=== PATIENT | male | born 1960 | race African-American/Black ===

== ENCOUNTER 2017-09-08 20:48 | Emergency (ER) | payer OTHER ==
--- NOTE | 2017-09-08 20:58 | PDOC ---
History of Present Illness - General Chief Complaint: Chest Pain Stated Complaint: COUGH & CHEST PAIN Time Seen by Provider: 09/08/17 20:58 - History of Present Illness Initial Comments: 09/13/17 07:23 Chief complaint: Cough History of present illness: Nonproductive cough, congestion, body aches, fatigue , malaise for several days. No fever, chest pain, shortness of breath Review of systems: As above Past medical history: Chronic renal failure on dialysis, as a result diabetes and HBP. Medications as noted Social/family history reviewed and noncontributory Physical exam: Alert oriented well-developed well-nourished no acute distress, respiratory or otherwise, cheerful and cooperative Afebrile, vital signs stable HEENT: Nasal congestion, ears and throat clear. Neck supple without bruit mass or nodes Lungs clear with full breath sounds throughout bilaterally. No wheezes rales or rhonchi CV S1 and S2 normal without murmur rub or gallop pulses full and symmetric no JVD or edema there is a good thrill in the shunt in his left forearm. Abdomen benign Neurological intact Skin clear, no rash, adequate turgor and wet mucous membranes Extremities no CCE Impression: Probable flu, rule out pneumonia Plan: X-ray negative. Tamiflu and antitussives. Rest and follow-up if symptoms worsen. Fully ambulatory and in no distress respiratory or otherwise at discharge with family to follow-up as recommended. Past History - Past Medical History Allergies/Adverse Reactions: Allergies Allergy/AdvReac Type Severity Reaction Status Date / Time No Known Drug Allergies Allergy Verified 09/08/17 21:14 Home Medications: Ambulatory Orders Cinacalcet HCl [Sensipar] 30 mg PO DAILY 03/01/16 Hydralazine HCl 100 mg PO BID 03/01/16 Losartan Potassium 100 mg PO DAILY #10 tablet 03/01/16 Nifedipine [Adalat cc] 60 mg PO BID #20 tablet.er 03/01/16 Sevelamer Carbonate [Renvela -] 800 mg PO TID 03/01/16 Guaifenesin AC [Robitussin-AC] 1 - 2 tsp PO Q4HWA PRN #120 ml MDD 8 09/08/17 Oseltamivir Phosphate [Tamiflu] 75 mg PO BID #10 capsule 09/08/17 Diabetes: Yes Dialysis: Yes (m,w,f) HTN: Yes Hypercholesterolemia: Yes Thyroid Disease: No - Surgical History Appendectomy: Yes (20 YRS. AGO) - Immunization History Td Vaccination: No Immunization Up to Date: Yes - Suicide/Smoking/Psychosocial Hx Smoking Status: Yes Smoking History: Former smoker Have you smoked in the past 12 months: No Number of Cigarettes Smoked Daily: 2 If you are a former smoker, when did you quit?: 2 months ago 'Breaking Loose' booklet given: 03/01/16 Hx Alcohol Use: No Drug/Substance Use Hx: No Substance Use Type: None Hx Substance Use Treatment: No *DC/Admit/Observation/Transfer Diagnosis at time of Disposition: Viral bronchitis - Discharge Dispostion Disposition: HOME Condition at time of disposition: Stable Admit: No - Prescriptions Prescriptions: Guaifenesin AC [Robitussin-AC] 1 - 2 tsp PO Q4HWA PRN #120 ml MDD 8 PRN Reason: Cough Oseltamivir Phosphate [Tamiflu] 75 mg PO BID #10 capsule - Referrals - Patient Instructions Printed Discharge Instructions: DI for Acute Bronchitis Additional Instructions: Rest, fluids, medication as directed. If there is chest pain, shortness of breath, or fever, return to the emergency room. Otherwise follow-up with your primary physician in 2-3 days. - Post Discharge Activity
[2017-09-08 21:26] VITALS: BP 166/75; PULSE 94; TEMP 100.5; BMI 33.5
[2017-09-08] MEDS ORDERED: OSELTAMIVIR PHOSPHATE 75 MG CAPSULE PO ONE (22:05)
[2017-09-08] MEDS ORDERED: OSELTAMIVIR PHOSPHATE 75 MG CAPSULE ONE (22:06)
== END 2017-09-08 22:13 | disposition home or self-care (01) ==
LOC: FER 20:48
DX: J20.8 Acute bronchitis due to other specified organisms (principal); B97.89 Other viral agents as the cause of diseases classified elsewhere; Z87.891 Personal history of nicotine dependence; I10 Essential (primary) hypertension; E78.00 Pure hypercholesterolemia, unspecified; E11.9 Type 2 diabetes mellitus without complications; Z99.2 Dependence on renal dialysis
CPT/HCPCS: 71046-TC; 99282-25

== ENCOUNTER 2019-02-08 08:06 | Inpatient (IN) | payer OTHER ==
--- NOTE | 2019-02-08 08:16 | PDOC ---
History of Present Illness - General Chief Complaint: Shortness of Breath Stated Complaint: COUGHING/ WEAKNESS Time Seen by Provider: 02/08/19 08:16 History Source: Patient - History of Present Illness Initial Comments: 02/08/19 08:58 The patient is a 59 year old male with a PMH of ESRD (on HD M/W/F) and HTN last dialysis Tuesday 02/06 presents to the ED c/o 1 day h/o shortness of breath. Patient notes a h/o generalized weakness and shortness of breath which he attributes to his dialysis, but starting last night his shortness of breath was particularly severe and worsened overnight prompting his visit to the ED this morning. No associated chest pain, leg swelling, calf pain. Endorses cough and runny nose. States that his last dialysis was Saturday and he was 1 kg over his normal dry weight, he is normally 108 kg, however he was 109 kg on Saturday, noting that he had consumed a lot of water prior to dialysis on Saturday. H/o echocardiogram but cannot recall when states he believes everything was normal. 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 Pena As per EMR, patient had a CLAY in 2014 with normal EF. Past History - Past Medical History Allergies/Adverse Reactions: Allergies Allergy/AdvReac Type Severity Reaction Status Date / Time No Known Drug Allergies Allergy Verified 02/08/19 08:11 Home Medications: Ambulatory Orders Hydralazine HCl 100 mg PO TID 03/01/16 Nifedipine [Adalat cc] 60 mg PO BID #20 tablet.er 03/01/16 Sevelamer Carbonate [Renvela -] 800 mg PO TID 03/01/16 COPD: No Diabetes: Yes Dialysis: Yes (m,w,f) HTN: Yes Hypercholesterolemia: Yes Thyroid Disease: No - Surgical History Appendectomy: Yes (20 YRS. AGO) - Immunization History Td Vaccination: No Immunization Up to Date: Yes - Suicide/Smoking/Psychosocial Hx Smoking Status: Yes Smoking History: Never smoked Have you smoked in the past 12 months: No Number of Cigarettes Smoked Daily: 2 If you are a former smoker, when did you quit?: 2 months ago 'Breaking Loose' booklet given: 03/01/16 Hx Alcohol Use: No Drug/Substance Use Hx: No Substance Use Type: None Hx Substance Use Treatment: No Review of Systems - Review of Systems Constitutional: No: Chills, Fever HEENTM: Yes: Tearing, Nose Congestion Respiratory: Yes: Shortness of Breath. No: Cough, Wheezing Cardiac (ROS): No: Chest Pain, Lightheadedness, Palpitations, Syncope ABD/GI: No: Constipated, Diarrhea, Nausea, Vomiting *Physical Exam - Vital Signs Last Vital Signs Temp Pulse Resp BP Pulse Ox 97.4 F L 77 18 197/86 H 100 02/08/19 08:08 02/08/19 08:08 02/08/19 08:08 02/08/19 08:08 02/08/19 08:08 - Physical Exam Comments: 02/08/19 09:11 General: Awake, alert, NAD, breathing comfortably on RA CV: S1, S2, (-) S3, mild LE edema B/L (chronic) Respiratory: decreased breath sound B/L, no wheeze/crackle Abdomen: Soft, no TTP (+) bowel sounds Extremity: RUE fistula (+) bruit Heart Score/ECG Review - ECG Impressions Comment:: 02/08/19 09:18 NSR HR 74, QT prolongation, no deviations, no RAUL/STD/TWI ED Treatment Course - LABORATORY CBC & Chemistry Diagram: 02/08/19 09:16 02/08/19 09:16 Medical Decision Making - Medical Decision Making 02/08/19 09:13 59 year old male with worsening shortness of breath. Hypertensive (197/68) @ triage Frontal diagnosis: fluid overload 2/2 to under dialysis, r/o ACS, new onset CHF , PNA, Viral URI Plan: EKG, CXR, Troponin, BNP, Cardiac monitoring, Reassess 02/08/19 09:19 EKG non-ischemic as documented in EKG section of EMR 02/08/19 10:11 Call received from lab - critical lab value, hyperkalemic, 6.2, likely 2/2 to ESRD/dialysis - will dialyze > Hyperkalemic cocktail 02/08/19 10:31 Troponin elevated @ 0.4 02/08/19 10:39 Patient reassessed @ bedside, Repeat BP174/95 At this time, patient requires admission for HD, patient counseled on plan of care amenable to admission 02/08/19 11:04 Case d/w Dr. Ann (Hospitalist) will admit for dialysis, cardiac evaluation 02/08/19 11:19 Case d/w Dr. Fuchs, covering for patient's social services aide, agrees w/HD, will evaluate patient at bedside Clinical Impression: Hyperkalemia 2/2 to decreased renal function, subjective dyspnea 2/2 to sub optimal HD *DC/Admit/Observation/Transfer Diagnosis at time of Disposition: Hyperkalemia - Discharge Dispostion Condition at time of disposition: Fair Decision to Admit order: Yes - Referrals - Patient Instructions - Post Discharge Activity
[2019-02-08 08:21] VITALS: BMI 32.6
[2019-02-08 09:40] LABS: BASO % 0.9 % (0-2.0); EOS % 17.7 % (0-4.5); HEMATOCRIT 30.9 % (35.4-49); HEMOGLOBIN 10.2 GM/dL (11.7-16.9); LYMPH % 14.2 % (8-40); MCH 32.2 pg (25.7-33.7); MCHC 33.1 g/dl (32.0-35.9); MEAN CELL VOLUME 97.3 fl (80-96); MEAN PLT VOLUME 9.1 fl (7.5-11.1); MONO % 7.9 % (3.8-10.2); NEUT % 59.3 % (42.8-82.8); RBC 3.18 M/mm3 (4.00-5.60); RDW 14.1 % (11.9-15.9); WHITE BLOOD COUNT 6.3 K/mm3 (4.0-10.0)
[2019-02-08 09:54] LABS: PLATELET COUNT 195 K/MM3 (134-434)
[2019-02-08 10:08] LABS: ALBUMIN 3.8 g/dl (3.4-5.0); BILIRUBIN,TOTAL 0.4 mg/dL (0.2-1); BLOOD UREA NITROGEN 58.7 mg/dL (7-18); CALCIUM 8.1 mg/dL (8.5-10.1); N-TERMINAL BNP 17630.7 pg/ml (5-125)
[2019-02-08 10:09] VITALS: PULSE 74; TEMP 98.1
[2019-02-08 10:10] LABS: CREATININE 13.5 mg/dL (0.55-1.3); POTASSIUM 6.2 mmol/L (3.5-5.1)
[2019-02-08] MEDS ORDERED: hydrALAZINE HCL 10 MG TABLET PO ONE (10:29)
[2019-02-08] MEDS ORDERED: hydrALAZINE HCL 25 MG TABLET (FP) ONE (10:44)
[2019-02-08] MEDS ORDERED: NIFEdipine E.R 60 MG TABLET (UD) PO SCH ×2 (10:45→22:00)
[2019-02-08] MEDS ORDERED: NIFEdipine E.R. 30 MG TABLET (FP) ONE (10:45)
[2019-02-08 11:48] VITALS: BP 175/92
--- NOTE | 2019-02-08 11:56 | HP ---
CHIEF COMPLAINT: sob HISTORY OF PRESENT ILLNESS: Patient is a 59 yo M with a PMHx of ESRD (M/w/F), HTN, DM, presenting with worsening SOB since his last dialysis session on Saturday. He says he usually gets SOB on Sundays because of the 3 day gap between dialysis sessions. He also says they took out a kilo less than what they usually take out. Patient currently asymptomatic, says his SOB his better. Dr. Josefina Tijerina is his hotel service supervisor. He denies chest pain, dizziness, cough, edema, calf pain, nausea , vomiting, fevers, chills, diarrhea. ER course was notable for: (1) Hyperkalemia 6.2 (2) CXR unremarkable (3) EKG with no peaked T waves or ST changes Recent Travel: denies PAST MEDICAL HISTORY: per HPI PAST SURGICAL HISTORY: appendectomy, RUE fistula Social History: Smoking: denies. former smoker Alcohol: occasional Drugs: denies Allergies No Known Drug Allergies Allergy (Verified 02/08/19 08:11) HOME MEDICATIONS: Home Medications Medication Instructions Recorded Hydralazine HCl 100 mg PO TID 03/01/16 Nifedipine [Adalat cc] 60 mg PO BID #20 tablet.er 03/01/16 Sevelamer Carbonate [Renvela -] 800 mg PO TID 03/01/16 REVIEW OF SYSTEMS CONSTITUTIONAL: Absent: fever, chills, diaphoresis, generalized weakness, malaise, loss of appetite, weight change HEENT: Absent: rhinorrhea, nasal congestion, throat pain, throat swelling, difficulty swallowing, mouth swelling, ear pain, eye pain, visual changes CARDIOVASCULAR: Absent: chest pain, syncope, palpitations, irregular heart rate, lightheadedness , peripheral edema RESPIRATORY: Absent: cough, shortness of breath, dyspnea with exertion, orthopnea, wheezing, stridor, hemoptysis GASTROINTESTINAL: Absent: abdominal pain, abdominal distension, nausea, vomiting, diarrhea, constipation, melena, hematochezia GENITOURINARY: Absent: dysuria, frequency, urgency, hesitancy, hematuria, flank pain, genital pain MUSCULOSKELETAL: Absent: myalgia, arthralgia, joint swelling, back pain, neck pain SKIN: Absent: rash, itching, pallor HEMATOLOGIC/IMMUNOLOGIC: Absent: easy bleeding, easy bruising, lymphadenopathy, frequent infections ENDOCRINE: Absent: unexplained weight gain, unexplained weight loss, heat intolerance, cold intolerance NEUROLOGIC: Absent: headache, focal weakness or paresthesias, dizziness, unsteady gait, seizure, mental status changes, bladder or bowel incontinence PSYCHIATRIC: Absent: anxiety, depression, suicidal or homicidal ideation, hallucinations. PHYSICAL EXAMINATION Vital Signs - 24 hr 02/08/19 02/08/19 02/08/19 08:08 08:11 08:33 Temperature 97.4 F L 98.1 F Pulse Rate 77 Pulse Rate [ 74 Right Radial] Respiratory 18 18 Rate Blood Pressure 197/86 H Blood Pressure 195/93 H [Right Arm] O2 Sat by Pulse 100 97 97 Oximetry (%) GENERAL: Awake, alert, and fully oriented, in no acute distress. HEAD: Normal with no signs of trauma. EYES: Pupils equal, round and reactive to light, extraocular movements intact, sclera anicteric, conjunctiva clear. No lid lag. EARS, NOSE, THROAT:oropharynx clear without exudates. Moist mucous membranes. NECK: supple without lymphadenopathy, JVD, or masses. LUNGS: Breath sounds equal, clear to auscultation bilaterally. No wheezes, and no crackles. No accessory muscle use. HEART: Regular rate and rhythm, normal S1 and S2 without murmur, rub or gallop. ABDOMEN: Soft, nontender, not distended, normoactive bowel sounds, no guarding, no rebound, no masses. LOWER EXTREMITIES: 2+ pulses, warm, well-perfused. No peripheral edema. NEUROLOGICAL: Cranial nerves II-XII intact. Normal speech. Laboratory Results - last 24 hr 02/08/19 02/08/19 09:16 09:16 WBC 6.3 RBC 3.18 L Hgb 10.2 L Hct 30.9 L MCV 97.3 H MCH 32.2 MCHC 33.1 RDW 14.1 Plt Count 195 D MPV 9.1 Absolute Neuts (auto) 3.7 Neutrophils % 59.3 Lymphocytes % 14.2 Monocytes % 7.9 Eosinophils % 17.7 H D Basophils % 0.9 D Nucleated RBC % 0 Sodium 139 Potassium 6.2 H* Chloride 106 Carbon Dioxide 23 Anion Gap 10 BUN 58.7 H Creatinine 13.5 H* Est GFR (CKD-EPI)AfAm 4.03 Est GFR (CKD-EPI)NonAf 3.48 Random Glucose 90 Calcium 8.1 L Total Bilirubin 0.4 AST 10 L ALT 17 Alkaline Phosphatase 76 Troponin I 0.04 B-Natriuretic Peptide 44156.7 H Total Protein 7.0 Albumin 3.8 ASSESSMENT/PLAN: 59 yo M with a PMHx of ESRD (M/w/F), HTN, DM, presenting with worsening SOB since his last dialysis session on Saturday. #Dyspnea -currently saturating 99% on RA. comfortable. -does not appear volume overloaded -CXR unremarkable. No congestive changes. -Nephrology consulted: no plans for dialysis today -Plan for dialysis tomorrow 6am outpatient. d/w Nephrology (Dr. Fuchs): in agreement with AM dialysis outpatient tomorrow #Hyperkalemia -patient w/ ESRD -no changes on EKG -Plan for dialysis tomorrow morning outpatient #HTN -patient did not take meds this morning because he came early to the ED -cont. home meds -BP slowly improving #DM -BGM -SSI #Anemia -likely chronic from ESRD #FEN -no iv fluids -hyperkalemic from ESRD -diabetic diet #Dvt ppx -eab
[2019-02-08] MEDS ORDERED: SEVELAMER CARBONATE 800 MG TAB (FP) PO SCH (12:00)
--- NOTE | 2019-02-08 12:01 | DS ---
Physical Exam: SUBJECTIVE: Patient seen and examined. Says he feels much better. Denies SOB, chest pain. OBJECTIVE: Vital Signs Period Temp Pulse Resp BP Sys/Price Pulse Ox Last 24 Hr 97.4 F-98.1 F 74-77 18-20 175-197/86-93 97-100 PHYSICAL EXAM GENERAL: The patient is awake, alert, and fully oriented, in no acute distress. HEAD: Normal with no signs of trauma. EYES: PERRL, extraocular movements intact, sclera anicteric, conjunctiva clear. ENT: oropharynx clear without exudates, moist mucous membranes. NECK: supple. LUNGS: Breath sounds equal, clear to auscultation bilaterally, no wheezes, no crackles HEART: Regular rate and rhythm, S1, S2 without murmur, rub or gallop. ABDOMEN: Soft, nontender, nondistended, normoactive bowel sounds EXTREMITIES: 2+ pulses, warm, well-perfused, no edema. NEUROLOGICAL: Cranial nerves II through XII grossly intact. PSYCH: Normal mood, normal affect. LABS Laboratory Results - last 24 hr 02/08/19 02/08/19 09:16 09:16 WBC 6.3 RBC 3.18 L Hgb 10.2 L Hct 30.9 L MCV 97.3 H MCH 32.2 MCHC 33.1 RDW 14.1 Plt Count 195 D MPV 9.1 Absolute Neuts (auto) 3.7 Neutrophils % 59.3 Lymphocytes % 14.2 Monocytes % 7.9 Eosinophils % 17.7 H D Basophils % 0.9 D Nucleated RBC % 0 Sodium 139 Potassium 6.2 H* Chloride 106 Carbon Dioxide 23 Anion Gap 10 BUN 58.7 H Creatinine 13.5 H* Est GFR (CKD-EPI)AfAm 4.03 Est GFR (CKD-EPI)NonAf 3.48 Random Glucose 90 Calcium 8.1 L Total Bilirubin 0.4 AST 10 L ALT 17 Alkaline Phosphatase 76 Troponin I 0.04 B-Natriuretic Peptide 98854.7 H Total Protein 7.0 Albumin 3.8 HOSPITAL COURSE: Date of Admission:02/08/19 Patient is a 59 yo M with a PMHx of HTN, DM, ESRD (MWF), presented because of worsening since his last dialysis treatment on Saturday. He said he gets SOB every saturday because he goes 3 days without dialysis. Patient was also found hypertensive, but did not take his medications in the AM because he came to the ED very early. Patient improved and is currently asymptomatic. Nephrology was consulted and emergent dialysis was not recommended at this time. Patient recommended to continue normal dialysis sessions. He currently denies SOB, chest pain, edema, dizziness, cough. He is scheduled for dialysis tomorrow morning and will follow with his PCP next week. Date of Discharge: 02/08/19 Minutes to complete discharge: 35 Discharge Summary Reason For Visit: HYPERKALEMIA Condition: Fair - Instructions Diet, Activity, Other Instructions: You were here because you were Short of breath. Your symptoms improved in the emergency room. You are scheduled for dialysis on 02/09 at 6am. Your Saturday dialysis sessions will likely be adjusted to avoid future episodes of shortness of breath. Your hospice care transitions coordinator is notified and aware. We did not make any changes to your medications. Follow a low salt diet as this will hopefully prevent you from holding onto more fluid. You can obtain a pulse oximeter to monitor your oxygen level if you are feeling short of breath. You goal is for your oxygen level >90% If you experience worsening shortness of breath, chest pain, cough, leg swelling , please call your doctor or go to the nearest emergency room. Referrals: Josefina Rushing MD [Staff Physician] - 1 Week Disposition: HOME - Home Medications Comprehensive Discharge Medication List: Ambulatory Orders Hydralazine HCl 100 mg PO TID 03/01/16 Nifedipine [Adalat cc] 60 mg PO BID #20 tablet.er 03/01/16 Sevelamer Carbonate [Renvela -] 800 mg PO TID 03/01/16
--- NOTE | 2019-02-08 12:30 | PN ---
Teaching Attending Note Name of Resident: Gisela Ann ATTENDING PHYSICIAN STATEMENT I saw and evaluated the patient. I reviewed the resident's note and discussed the case with the resident. I agree with the resident's findings and plan as documented. SUBJECTIVE:59yo M wtih PMH ESRD On HD (MWF), DM and HTN presented to the ER with SOB. states he received his usual HD on Saturday and tolerated the session. took between 2-3Kg off. states when he got home he was 1kg over his dry weight. starting this AM he was feeling dyspnic which he states he usually does every Saturday. decided to come to the hospital as he was always encouraged to go to the ER if not feeling well. currently is asymptomatic. denies CP, SOB, fever, chills, N/V/C/d does not make urine OBJECTIVE: Last Vital Signs Temp Pulse Resp BP Pulse Ox 98.1 F 74 20 175/92 H 97 02/08/19 11:39 02/08/19 11:39 02/08/19 11:39 02/08/19 11:39 02/08/19 11:39 General NAD Lungs CTA B/L no wheezing/rales/rhonchi Extremities no pedal edema ASSESSMENT AND PLAN: 59yo M wtih PMH ESRD On HD (MWF), DM and HTN presented to the ER with SOB 1. dyspnea- pt is currently saturating 99% on RA. does not appear to be volume overloaded. ER was concerned for admission that required extra HD session. pt was seen by nephro and determined did not meet criteria for emergent HD. scheduled for routine HD tomorrow. d/w patient about lowering salt intake. would hesitate giving diuretic as does not make urine but encouraged to d/w data warehousing specialist about what else can be done to prevent this from every saturday becoming symptomatic. possible remove more fluid on Fridays if hemodynamics permit. encouraged to obtain pulse ox to monitor oxygen levels 2. Hyperkalemia- no peaked T waves. as per nephro does not require HD or treatment or monitoring at this time 3. HTN- above goal. he did not take his medications this morning. will give meds now and monitor 4. d/c home with follow up tomorrow morning at regular scheduled HD session. present at bedside. verbalized understanding and agreement [facility] plan
[2019-02-08] MEDS ORDERED: hydrALAZINE HCL 50 MG TABLET (FP) PO SCH (14:00)
--- NOTE | 2019-02-08 16:28 | PDOC ---
Documentation entered by Kristian Collins SCRIBE, acting as scribe for Rocío Chairez MD. Rocío Chairez MD: This documentation has been prepared by the Dennis gallagher Nirvannie, SCRIBE, under my direction and personally reviewed by me in its entirety. I confirm that the documentation accurately reflects all work, treatment, procedures, and medical decision making performed by me. Attending Attestation - Resident Resident Name: Ruth AnnAmanda - ED Attending Attestation I have performed the following: I have examined & evaluated the patient, The case was reviewed & discussed with the resident, I agree w/resident's findings & plan - HPI HPI: 02/08/19 09:40 The patient is a 59 year old male, with a significant past medical history of ESRD (MWF) and HTN, who presents to the emergency department with, with worsening shortness of breath. As per patient, since receiving dialysis 3 days prior to his arrival (02/06) he believes they did not remove enough fluids leaving approximately 1-2 lbs more than his dry weight. Patient notes he normally begins feeling short of breath by Sundays, however, secondary to his excess fluid the shortness of breath onset earlier. Patient did not take his HTN medications this morning secondary to his symptoms. He denies any recent chest pain or palpitations. He denies any recent fevers, chills, headache or dizziness. He denies any recent nausea, vomit, diarrhea or constipation. He denies any recent dysuria, frequency, urgency or hematuria. Allergies: NKDA Past surgical history: Appendectomy, RUE fistula Social History: Former smoker. Renal: Dr. Josefina Rushing - Physicial Exam PE: 02/08/19 09:40 GENERAL: Awake, alert, and fully oriented, in no acute distress HEAD: No signs of trauma EYES: PERRLA, EOMI, sclera anicteric, conjunctiva clear ENT: Auricles normal inspection, hearing grossly normal, nares patent, oropharynx clear without exudates. Moist mucosa NECK: Normal ROM, supple, no lymphadenopathy, JVD, or masses LUNGS: Breath sounds equal, clear to auscultation bilaterally. No wheezes, and no crackles HEART: Regular rate and rhythm, normal S1 and S2, no murmurs, rubs or gallops ABDOMEN: Soft, nontender, normoactive bowel sounds. No guarding, no rebound. No masses EXTREMITIES: Normal range of motion, no edema. No clubbing or cyanosis. No cords, erythema, or tenderness NEUROLOGICAL: Cranial nerves II through XII grossly intact. Normal speech. SKIN: Warm, Dry, normal turgor, no rashes or lesions noted. - Medical Decision Making 02/08/19 10:05 Pt presents to the ED complaining of worsening of his chronic shortness of breath and weight gain. Differential includes fluid overload, less likely CHF, less likely 02/08/19 10:06
[2019-02-08] MEDS ORDERED: INSULIN SLIDING SCALE (NOVOLOG) 1 VIAL SQ SCH (16:30)
--- NOTE | 2019-02-08 16:59 | EKG ---
Test Reason : Blood Pressure : / mmHG Vent. Rate : 074 BPM Atrial Rate : 074 BPM P-R Int : 186 ms QRS Dur : 104 ms QT Int : 444 ms P-R-T Axes : 074 -03 086 degrees QTc Int : 492 ms NORMAL SINUS RHYTHM PROLONGED QT ABNORMAL ECG NO PREVIOUS ECGS AVAILABLE Confirmed by MD ESME, ASAD ([id number]) on 02/08/2019 4:59:08 PM Referred By: Confirmed By:ASAD VICTORIA MD
== END 2019-02-08 12:40 | disposition home or self-care (01) | DRG 682 ==
LOC: JER 08:06 → JERBED 11:02
PROVIDERS: ADMIT Internal Medicine; ATTEND Internal Medicine
DX: I12.0 Hypertensive chronic kidney disease with stage 5 chronic kidney disease or end stage renal disease (principal); N18.6 End stage renal disease; E87.5 Hyperkalemia; Z99.2 Dependence on renal dialysis; E11.22 Type 2 diabetes mellitus with diabetic chronic kidney disease; D63.1 Anemia in chronic kidney disease; R06.00 Dyspnea, unspecified
CPT/HCPCS: 36415; 71045-TC-FY; 80053; 83880; 84484; 85025; 93005; 93010; 99284-25